=== PATIENT | female | born 1950 | race Caucasian/White ===

== ENCOUNTER 2017-05-31 16:45 | Emergency (ER) | payer OTHER ==
[2017-05-31 16:59] VITALS: RESP 18; TEMP 98.2; O2SAT 97
[2017-05-31] MEDS ORDERED: CEPHALEXIN 500 MG CAP PO ONE (17:35)
--- NOTE | 2017-05-31 17:38 | EDPHY ---
H & P Time Seen by Provider: 05/31/17 17:30 HPI/ROS: This patient has left medial leg redness and burning discomfort after an insect bite yesterday while in her garden. She was on her knees working in the garden when she felt a sharp poke discomfort to the left medial leg with only a small red area yesterday. Today the redness is hands size with again burning discomfort. It is quite warm to touch as well. She has no other associated symptoms and no exacerbating or alleviating factors are noted. She has not tried any analgesics. ROS: No constitutional symptoms-no fevers chills or fatigue HEENT: No complaints Cardiovascular: No lightheadedness GI: No nausea vomiting Integumentary: No other skin rash or lesions. No discharge. 7 point ROS is otherwise negative Past Medical/Surgical History: Otherwise healthy Smoking Status: Never smoked Physical Exam: Physical Exam Vital signs are normal. General: No acute distress HEENT: Atraumatic. Eyes: Pupils equal and react to light. Extraocular motions are intact. Lungs: No respiratory distress. Cardiac: Brisk capillary refill is intact throughout. Pulses are 2+ and symmetric in the affected extremity. Skin: Patient has a hand size area of confluent erythema to the left medial thigh with associated warmth to touch and mild edema but no fluctuance and no foreign bodies on close inspection. Neuro: Alert and oriented x3 with no sensorimotor deficits. Initial differential diagnosis: Insect bite with cellulitis, Hymenoptera sting with localized allergy Constitutional: Initial Vital Signs Temperature (C) 36.8 C 05/31/17 16:55 Heart Rate 80 05/31/17 16:55 Respiratory Rate 18 05/31/17 16:55 Blood Pressure 132/85 H 05/31/17 16:55 O2 Sat (%) 97 05/31/17 16:55 O2 Delivery Mode Room Air Allergies/Adverse Reactions: Penicillins Allergy (Intermediate, Verified 05/31/17 16:54) SWELLING codeine [Codeine] Allergy (Mild, Verified 05/31/17 16:54) NAUSEA/VOMITING ENVIRONMENTAL Allergy (Mild, Uncoded 05/31/17 16:54) NASAL CONGESTION/RASH Home Medications: Medication Instructions Recorded Cephalexin [Keflex (*)] 500 mg PO QID #40 cap 05/31/17 MDM/Departure - MDM Medications Given: Discontinued Medications Cephalexin HCl (Keflex) 1,000 mg PO EDNOW ONE PRN Reason: Protocol Stop: 05/31/17 17:36 Last Admin: 05/31/17 17:46 Dose: 1,000 mg ED Course/Re-evaluation: Given significant warmth to touch and other findings this appears most consistent with a cellulitis complicating insect bite. Counseled patient regarding this. She is given a 1st dose of Keflex here, we demarcated border of erythema. Will continue her on Keflex Find no evidence of abscess and no evidence of systemic toxicity in this patient. - Depart Disposition: Home, Routine, Self-Care Clinical Impression: Cellulitis Qualifiers: Site of cellulitis: extremity Site of cellulitis of extremity: lower extremity Laterality: left Qualified Code(s): L03.116 - Cellulitis of left lower limb Insect bite Qualifiers: Encounter type: initial encounter Qualified Code(s): W57.XXXA - Bitten or stung by nonvenomous insect and other nonvenomous arthropods, initial encounter Condition: Good Instructions: Cellulitis (ED), Insect Bite or Sting (ED) Additional Instructions: Diagnosis: 1. Insect bite 2. Cellulitis Plan: Elevate the leg when able Plan warm packs Keflex antibiotic Ibuprofen Tylenol for discomfort as needed Return for any significant worsening despite the treatment plan Stand Alone Forms: Work Excuse Prescriptions: Cephalexin [Keflex (*)] 500 mg PO QID #40 cap Referrals: NONE *PRIMARY CARE P,. [Primary Care Provider] - As per Instructions
[2017-05-31 17:55] VITALS: BP 145/62; PULSE 78
== END 2017-05-31 17:53 | disposition home or self-care (01) ==
LOC: CED 16:45
DX: L03.116 Cellulitis of left lower limb (principal); W57.XXXA Bitten or stung by nonvenomous insect and other nonvenomous arthropods, initial encounter

== ENCOUNTER 2017-06-01 11:06 | Emergency (ER) | payer OTHER ==
[2017-06-01 11:25] VITALS: RESP 18
[2017-06-01] MEDS ORDERED: VANCOMYCIN HCL/NORMAL SALINE 250 ML IV ONE (11:27)
--- NOTE | 2017-06-01 11:27 | EDPHY ---
H & P Time Seen by Provider: 06/01/17 11:14 HPI/ROS: Chief Complaint: Infection of left leg HPI: 67-year-old woman was bit by some sort of insect 2 days ago. Yesterday developed redness on her left leg around that site. Was seen here and started on Keflex. Patient took her dose in the ED about 6 o'clock, but was unable to get her prescription until this morning and took her 2nd dose about 10 o'clock this morning. Patient states that the redness has spread out of the marked areas. Denies any fevers or chills. It is painful to touch. No nausea or vomiting. ROS: 10 point Review of Systems is negative except as noted in the HPI. PMH: Denies Medications: None Allergies: Penicillin and codeine Social History: No smoking, no alcohol, no recreational drug use Family History: non-contributory Physical Exam: Gen: Awake, Alert, No Distress HEENT: Nose: no rhinorrhea Eyes: PERRLA, EOMI Mouth: Moist mucosa Neck: Supple, no JVD Ext: Left medial calf she has got erythema which is spreading outside the demarcated area, approximately 15 cm. It is warm to the touch. It is tender. It is not progressed proximally past the knee. Neuro: CN II-XII intact, Sensation grossly intact, Strength 5/5 in bilateral upper and lower extremities - Personal History Tetanus Vaccine Date: LESS THAN 10 YRS - Medical/Surgical History Hx Asthma: No Hx Chronic Respiratory Disease: No Hx Diabetes: No Hx Cardiac Disease: No Hx Renal Disease: No Hx Cirrhosis: No Hx Alcoholism: No Hx HIV/AIDS: No Hx Splenectomy or Spleen Trauma: No Other PMH: some surgeries years ago - Social History Smoking Status: Never smoked Constitutional: Initial Vital Signs Temperature (C) 36.6 C 06/01/17 11:22 Heart Rate 84 06/01/17 11:22 Respiratory Rate 18 06/01/17 11:22 Blood Pressure 155/74 H 06/01/17 11:22 O2 Sat (%) 97 06/01/17 11:22 O2 Delivery Mode Room Air Allergies/Adverse Reactions: Penicillins Allergy (Intermediate, Verified 05/31/17 16:54) SWELLING codeine [Codeine] Allergy (Mild, Verified 05/31/17 16:54) NAUSEA/VOMITING ENVIRONMENTAL Allergy (Mild, Uncoded 05/31/17 16:54) NASAL CONGESTION/RASH Home Medications: Medication Instructions Recorded Cephalexin [Keflex (*)] 500 mg PO QID #40 cap 05/31/17 Medical Decision Making ED Course/Re-evaluation: Patient had an IV placed. She was given 1 g of vancomycin IV. IV was left in. She is instructed to continue taking her Bactrim. She will come back in 12 hours for recheck. If improved at that point she will likely get a 2nd dose of vancomycin then progress on to Bactrim and Keflex. If she is not improved or is worsening she will return sooner and will likely require admission for continued IV antibiotics. Departure - Departure Disposition: Home, Routine, Self-Care Clinical Impression: Cellulitis Condition: Good Instructions: Cellulitis (ED) Additional Instructions: Return to the emergency department 12 hours for recheck of your skin infection. Continue taking your oral antibiotics today. If the redness spreads beyond the newly marked area return to the emergency department sooner. Referrals: Shahida Chavez MD [Primary Care Provider] - As per Instructions
[2017-06-01 12:43] VITALS: BP 153/68; PULSE 72; TEMP 97.9; O2SAT 98
== END 2017-06-01 12:41 | disposition home or self-care (01) ==
LOC: CED 11:06
DX: L03.116 Cellulitis of left lower limb (principal)
CPT/HCPCS: 96365; J3370

== ENCOUNTER 2017-06-01 22:52 | Emergency (ER) | payer OTHER ==
[2017-06-01] MEDS ORDERED: VANCOMYCIN 1 GM in NS 250 ML IV ONE (23:15)
[2017-06-01] MEDS ORDERED: SULFAMETHOX/TMP 800/160 MG 1 TAB PO ONE (23:15)
[2017-06-01] MEDS ORDERED: TDAP ADULT 0.5 ML INJ (BOOSTRIX) IM ONE (23:15)
--- NOTE | 2017-06-02 00:38 | EDPHY ---
H & P Time Seen by Provider: 06/01/17 23:05 HPI/ROS: CC: MARISA cellulitis re-check HPI: This 67-year-old woman presents to emergency department today for recheck of left lower extremity cellulitis. She states that she was kneeling on some rocks in her garden pulling some weeds 2 days ago when she felt a sharp needle- like sensation in her medial left calf. She did not see what stung or bit her. She immediately put antibacterial cream on the area. She then noticed a dime- sized area of erythema at the site which progressed to a quarter-sized area after standing on her feet all day at work at [employer]. So yesterday she went to the emergency department for evaluation and was placed on Keflex. She was given 1000 mg at approximately 6 o'clock in the evening but she was unable to get her prescription filled until this morning. She took her first dose of Keflex at 10:30 a.m. but the erythema now spread to March larger area and she came back to the emergency room for re-evaluation. At that time she was given a dose of vancomycin and advised to return to the emergency room this evening for 2nd dose of vancomycin. She was told that if the area got worse she would be admitted but if the area had not gotten worse she would be discharged after the vancomycin with a prescription for Bactrim. She states the area looks better and feels slightly better. However, it is still painful and it "feels like something burst inside her leg." The pain is worse after she has been standing and feels much better when she is able to relax and keep it elevated. She has not had a fever or chills. She denies nausea or vomiting as well. She has taken a total of 3 doses of her Keflex today. Past Medical/Surgical History: Past medical history: denied Past surgical history: Appy, lanny, hysterectomy, right toe surgery Family history: father at age 80 of a stroke, mother is alive at age 88 she has a murmur, back problems and mild anemia Allergies: Penicillin causes a rash and codeine causes vomiting Medications: denied except recently prescribed cephalexin Social History: The patient denies tobacco use, has occasional alcohol, no marijuana Employed at [employer] Primary care provider: Shahida Chavez Smoking Status: Never smoked Physical Exam: General: Alert and oriented x3, in moderate discomfort Skin: There is an area of erythema measuring 4.5 x 3 cm with a small patch of vesicles, no weeping. This area is indurated and tender. No crepitance. Surrounding this area is a 12 x 5 cm area of more mile erythema which is less tender. HEENT: Normocephalic, atraumatic, Pupils equally round reactive to light and accommodation, extra ocular muscles intact Neck: Supple Cardio: Regular rate and rhythm, no murmurs, gallops, or rubs Pulmonary: Clear to auscultation bilaterally Musculoskeletal: No clubbing, cyanosis, or edema; moves all extremities well Neuro: non-focal Constitutional: Initial Vital Signs Temperature (C) 98.1 F 06/01/17 23:09 Heart Rate 70 06/01/17 23:09 Respiratory Rate 16 06/01/17 23:09 Blood Pressure 124/70 H 06/01/17 23:09 O2 Sat (%) 97 06/01/17 23:09 O2 Delivery Mode Room Air Allergies/Adverse Reactions: Penicillins Allergy (Intermediate, Verified 06/01/17 23:11) SWELLING codeine [Codeine] Allergy (Mild, Verified 06/01/17 23:11) NAUSEA/VOMITING ENVIRONMENTAL Allergy (Mild, Uncoded 05/31/17 16:54) NASAL CONGESTION/RASH Home Medications: Medication Instructions Recorded Cephalexin [Keflex (*)] 500 mg PO QID #40 cap 05/31/17 Sulfamethox/Tmp 800/160 mg 1 tab PO BID #20 tab 06/02/17 [Bactrim Ds] Medical Decision Making - Diagnostics Imaging Results: Patient declined soft tissue film of LLE ED Course/Re-evaluation: The patient was seen and examined. Vital signs reviewed. The erythema has receded from the skin marker line. She was given one gram of vancomycin and her tetanus vaccination was updated. She was also given Bactrim DS 1 orally. She was given a prescription for Bactrim DS 1 tablet twice daily for 10 days to add to her cephalexin regimen. She should call 1st thing in the morning to get a follow-up appoint with her primary care provider tomorrow without fail or she should return to the emergency room for recheck. The patient has declined soft tissue x-rays and admission to the hospital. - Data Points Medications Given: Discontinued Medications Diphtheria/Tetanus/Acell Pertussis (Boostrix) 0.5 ml IM .ONCE ONE Stop: 06/01/17 23:16 Last Admin: 06/01/17 23:28 Dose: 0.5 ml Vancomycin HCl 1 gm/ Sodium (Chloride) 250 mls @ 250 mls/hr IV EDNOW ONE PRN Reason: Protocol Stop: 06/02/17 00:14 Last Admin: 06/01/17 23:26 Dose: 250 mls Trimethoprim/Sulfamethoxazole (Bactrim Ds) 1 ea PO EDNOW ONE PRN Reason: Protocol Stop: 06/01/17 23:16 Last Admin: 06/01/17 23:30 Dose: 1 ea Departure - Departure Disposition: Home, Routine, Self-Care Clinical Impression: Cellulitis of left leg without foot Condition: Good Instructions: Cephalexin (By mouth), Sulfamethoxazole/Trimethoprim (By mouth), Vancomycin (By injection), Cellulitis (ED) Additional Instructions: Continue the Cephalexin and Bactrim DS (trimethoprim/sulfamethoxazole) as directed. See your primary care provider tomorrow without fail. Tell them you are an ER follow-up. If you have any problems, recheck in the ER (immediately if symptoms worsen). Referrals: NONE *PRIMARY CARE P,. [Primary Care Provider] - As per Instructions Stand Alone Forms: Work Excuse Prescriptions: Sulfamethox/Tmp 800/160 mg [Bactrim Ds] 1 tab PO BID #20 tab
[2017-06-02] MEDS ORDERED: SULFAMET/TMP DS PREPACK#2 BTL TAKEHOME ONE (00:43)
[2017-06-02 01:07] VITALS: BP 124/81; PULSE 73; RESP 18; TEMP 98.2; O2SAT 96
== END 2017-06-02 00:55 | disposition home or self-care (01) ==
LOC: CED 22:52
PROC: 3E0234Z Introduction of Serum, Toxoid and Vaccine into Muscle, Percutaneous Approach (ICD-10-PCS; principal; 2017-06-01)
DX: L03.116 Cellulitis of left lower limb (principal); Z23 Encounter for immunization
CPT/HCPCS: 96365; J3370

== ENCOUNTER → 2018-11-27 | Outpatient (CLI) | payer OTHER | LOC: FIMAGING 07:21 | PROVIDERS: ATTEND Family Medicine | DX: K76.0 Fatty (change of) liver, not elsewhere classified (principal); E78.5 Hyperlipidemia, unspecified ==

== ENCOUNTER → 2019-04-28 | Outpatient (CLI) | payer OTHER | LOC: FIMAGING 09:10 ==